=== PATIENT | male | born 1975 | race African-American/Black ===

== ENCOUNTER 2021-10-14 22:05 | Inpatient (IN) | payer OTHER ==
[2021-10-14 23:16] VITALS: BMI 30.5
[2021-10-15] MEDS ORDERED: MAG HYDROX/AL HYDROX/SIMETH 30 ML UNIT-DOSE CUP PO PRN (00:18)
[2021-10-15] MEDS ORDERED: IBUPROFEN 600 MG TABLET (FP) PO PRN (00:18)
[2021-10-15] MEDS ORDERED: BENZOCAINE/MENTHOL (CHLORASEPTIC ) LOZENGE MM PRN (00:18)
[2021-10-15] MEDS ORDERED: BISMUTH SUBSALICYLATE 524 MG/30 ML PO PRN (00:18)
[2021-10-15] MEDS ORDERED: METHOCARBAMOL 500 MG TABLET PO PRN (00:18)
[2021-10-15] MEDS ORDERED: MAGNESIUM HYDROX 2400MG/30ML ORAL SUSPENSION 30 ML CUP PO PRN (00:18)
[2021-10-15] MEDS ORDERED: DICYCLOMINE HCL 10 MG CAPSULE PO PRN (00:18)
[2021-10-15] MEDS ORDERED: LOPERAMIDE HCL 2 MG CAPSULE PO PRN (00:18)
[2021-10-15] MEDS ORDERED: IBUPROFEN 400 MG TABLET (FP) PO PRN (00:18)
[2021-10-15] MEDS ORDERED: NICOTINE POLACRILEX 2 MG GUM BUC PRN (00:18)
[2021-10-15] MEDS ORDERED: ONDANSETRON *ODT* 4 MG TABLET SL PRN (00:18)
[2021-10-15] MEDS ORDERED: ACETAMINOPHEN 325 MG TABLET (FP) PO PRN ×2 (00:18)
[2021-10-15] MEDS ORDERED: MAGNESIUM CITRATE 300 ML BOTTLE PO PRN (00:18)
[2021-10-15] MEDS: PRENATAL VITAMINS W/ FOLIC ACID TABLET (FP) PO SCH (10:12)
[2021-10-15] MEDS: ENALAPRIL MALEATE 10 MG TABLET PO SCH (10:12)
[2021-10-15] MEDS: NICOTINE 14 MG/24 HOURS TOPICAL PATCH TD SCH (10:12)
[2021-10-15 11:56] LABS: HIV INTERPRETATION NEGATIVE (NEGATIVE)
[2021-10-15 13:35] VITALS: RESP 18
[2021-10-15 15:08] LABS: HEMATOCRIT 40.3 % (35.4-49); HEMOGLOBIN 13.4 GM/dL (11.7-16.9); MCH 28.4 pg (25.7-33.7); MCHC 33.3 g/dl (32.0-35.9); MEAN CELL VOLUME 85.3 fl (80-96); MEAN PLT VOLUME 8.6 fl (7.5-11.1); PLATELET COUNT 220 10^3/uL (134-434); RBC 4.72 M/mm3 (4.00-5.60); RDW 13.5 % (11.9-15.9); WHITE BLOOD COUNT 7.3 K/mm3 (4.0-10.0)
[2021-10-15 15:28] LABS: CALCIUM 8.9 mg/dL (8.5-10.1)
[2021-10-15 15:30] LABS: BLOOD UREA NITROGEN 12.8 mg/dL (7-18)
[2021-10-15 15:34] LABS: BILIRUBIN,TOTAL 0.3 mg/dL (0.2-1); TOT PROT 6.6 g/dl (6.4-8.2)
[2021-10-15 15:35] LABS: ALBUMIN 3.5 g/dl (3.4-5.0)
[2021-10-15 15:38] LABS: CREATININE 0.9 mg/dL (0.55-1.3)
[2021-10-15] MEDS ORDERED: THIAMINE HCL 100 MG TABLET (FP) PO SCH (22:00)
[2021-10-15] MEDS ORDERED: MELATONIN 5 MG TABLETS PO SCH (22:00)
[2021-10-16] MEDS: PRENATAL VITAMINS W/ FOLIC ACID TABLET (FP) PO SCH (10:22)
[2021-10-16] MEDS: NICOTINE 14 MG/24 HOURS TOPICAL PATCH TD SCH (10:22)
[2021-10-16] MEDS: ENALAPRIL MALEATE 10 MG TABLET PO SCH (10:22)
[2021-10-16 13:35] VITALS: BP 162/94; PULSE 54; TEMP 97.3
== END 2021-10-16 14:40 | disposition other institution (70) | DRG 775 ==
LOC: YASAS 22:05 → Y3N 10-15 00:52
PROVIDERS: ADMIT Surgery; ATTEND Surgery
PROC: HZ2ZZZZ Detoxification Services for Substance Abuse Treatment (ICD-10-PCS; principal; 2021-10-15)
DX: F10.230 Alcohol dependence with withdrawal, uncomplicated (principal); F12.20 Cannabis dependence, uncomplicated; F17.210 Nicotine dependence, cigarettes, uncomplicated; F41.9 Anxiety disorder, unspecified; I10 Essential (primary) hypertension
CPT/HCPCS: 36415; 80053; 85027; 86780; 87389; 93005; 93010; C9803-CS; U0003; U0005